=== PATIENT | female | born 2005 | race Caucasian/White ===

== ENCOUNTER → 2024-04-03 | Outpatient (CLI) | payer OTHER | LOC: CSHCT 09:15 | PROVIDERS: ATTEND Specialist | DX: R09.81 Nasal congestion (principal); J34.1 Cyst and mucocele of nose and nasal sinus ==

== ENCOUNTER 2025-02-20 07:19 | Day surgery (SDC) | payer OTHER ==
[2025-02-19 11:52] VITALS: BMI 36.6
[2025-02-20] MEDS ORDERED: AFRIN NASAL MIST 15 ML BOT ONE (08:13)
[2025-02-20] MEDS ORDERED: PROPOFOL 40 ML ONE (08:25)
[2025-02-20 08:38] LABS: Hematocrit 38.0 % (34.9-44.5)
[2025-02-20 08:48] LABS: BHCG - Serum Negative (NEGATIVE); Pregs Control Background? CLEAR/WHITE (CLR/WHITE); Pregs Control Bar Appear? YES (CONTROL BAR)
[2025-02-20] MEDS ORDERED: Lidocaine 1% w/Epinephrine 1:200K 30 ML VIAL ONE (09:07)
[2025-02-20] MEDS ORDERED: Oxymetazoline HCl 0.05% (15 ML) ONE (10:09)
[2025-02-20] MEDS ORDERED: Lidocaine 4% PF 5 ML AMP ONE (10:59)
[2025-02-20] MEDS ORDERED: Ondansetron PF 4 MG/2 ML Vial ONE (10:59)
[2025-02-20] MEDS ORDERED: Ketorolac Tromethamine 30 MG (1 mL) VIAL ONE (10:59)
[2025-02-20] MEDS ORDERED: Lidocaine 1% (PF) 30 ML VIAL ONE (10:59)
[2025-02-20] MEDS ORDERED: Rocuronium Bromide 10 MG/ML (10ML VIAL) ONE (10:59)
[2025-02-20] MEDS ORDERED: SUGAMMADEX SODIUM 200 MG/2 ML VIAL ONE (10:59)
[2025-02-20] MEDS ORDERED: Hydrocodone-Acetamin 15 ML UDCUP ONE (12:15)
== END 2025-02-20 13:20 | disposition home or self-care (01) ==
LOC: CSHSDC 07:19
PROVIDERS: ATTEND Specialist
DX: J01.40 Acute pansinusitis, unspecified (principal); J32.4 Chronic pansinusitis; J34.3 Hypertrophy of nasal turbinates; J35.2 Hypertrophy of adenoids
CPT/HCPCS: 36415; 84703; 85014; J0169; J1100; J1885; J2704; J3010